=== PATIENT | female | born 1970 | race Caucasian/White ===

== ENCOUNTER 2025-06-15 13:30 | Observation (INO) | payer BC ==
--- NOTE | 2025-06-15 14:05 | ED ---
Chest Pain HPI - General Chief Complaint: Chest Pain Stated Complaint: Chest pain Time Seen by Provider: 06/15/25 13:37 Source: patient Mode of arrival: ambulatory Limitations: no limitations - History of Present Illness Initial Comments: 54-year-old female who presents to the emergency department reporting chest pain. States it started around 2 AM. She could feel her heart racing. States that intermittently over the past year she has had episodes of heart racing with high heart rate but never got it checked out. She denies history of any cardiac disease. No history of A-fib. She denies a ripping or tearing sensation to her back. No numbness, tingling or weakness in her extremities. Does admit to shortness of breath. Recently drove here 3 weeks ago from [place]. Denies any calf pain or swelling. No history of DVT or PE. She does have a history of von Willebrand's disease. No other alleviating, precipitating or modifying factors - Related Data Home Medications Medication Instructions Recorded Confirmed Semaglutide [Wegovy] 2.4 mg SQ MO 06/15/25 06/19/25 hydrOXYzine pamoate [Vistaril] 50 mg PO QID 06/15/25 06/19/25 Previous Rx's Medication Instructions Recorded ALPRAZolam [Xanax] 0.25 mg PO TID PRN #12 tab 06/17/25 Apixaban [Eliquis] 5 mg PO BID #60 tab 06/17/25 Melatonin 6 mg PO HS tab 06/19/25 Metoprolol Succinate (ER) [Toprol 50 mg PO DAILY tab 06/19/25 XL] dilTIAZem HCL [Cardizem] 120 mg PO DAILY #30 tab 06/19/25 Allergies Allergy/AdvReac Type Severity Reaction Status Date / Time Opioids - Morphine Analogues Allergy Anaphylaxis Verified 06/19/25 18:31 shellfish derived Allergy Anaphylaxis Verified 06/19/25 18:31 Review of Systems ROS Statement: Those systems with pertinent positive or pertinent negative responses have been documented in the HPI. ROS Other: All systems not noted in ROS Statement are negative. Past Medical History Past Medical History: CVA/TIA, Diabetes Mellitus History of Any Multi-Drug Resistant Organisms: None Reported Past Surgical History: Unable to Obtain Past Psychological History: No Psychological Hx Reported Smoking Status: Current every day smoker Past Alcohol Use History: Rare Past Drug Use History: None Reported General Exam Limitations: no limitations General appearance: alert, in no apparent distress Head exam: Present: atraumatic, normocephalic, normal inspection Eye exam: Present: normal appearance, PERRL, EOMI. Absent: scleral icterus, conjunctival injection, periorbital swelling ENT exam: Present: normal exam, mucous membranes moist Neck exam: Present: normal inspection. Absent: tenderness, meningismus, lymphadenopathy Respiratory exam: Present: normal lung sounds bilaterally. Absent: respiratory distress, wheezes, rales, rhonchi, stridor Cardiovascular Exam: Present: tachycardia, irregular rhythm, normal heart sounds. Absent: systolic murmur, diastolic murmur, rubs, gallop, clicks GI/Abdominal exam: Present: soft, normal bowel sounds. Absent: distended, tenderness, guarding, rebound, rigid Extremities exam: Present: normal inspection, full ROM, normal capillary refill. Absent: tenderness, pedal edema, joint swelling, calf tenderness Back exam: Present: normal inspection Neurological exam: Present: alert, oriented X3, CN II-XII intact Psychiatric exam: Present: normal affect, normal mood Skin exam: Present: warm, dry, intact, normal color. Absent: rash Course Vital Signs 06/15/25 06/15/25 06/15/25 13:31 15:46 15:58 Temperature 97.6 F Pulse Rate 71 178 H 141 H Respiratory 20 20 20 Rate Blood Pressure 120/105 119/97 O2 Sat by Pulse 99 98 97 Oximetry 06/15/25 18:02 Temperature 98.4 F Pulse Rate 85 Respiratory 18 Rate Blood Pressure 111/90 O2 Sat by Pulse 100 Oximetry Chest Pain MDM - MDM Was pt. sent in by a medical professional or institution (, PA, SCHOOL PSYCHOMETRIST, urgent care, hospital, or prison...) When possible be specific @ -No Did you speak to anyone other than the patient for history (EMS, parent, family, police, friend...)? What history was obtained from this source @ -No Did you review nursing and triage notes (agree or disagree)? Why? @ -I reviewed and agree with nursing and triage notes Were old charts reviewed (outside hosp., previous admission, EMS record, old EKG, old radiological studies, urgent care reports/EKG's, prison records)? Report findings @ -No old charts were reviewed Differential Diagnosis (chest pain, altered mental status, abdominal pain women, abdominal pain men, vaginal bleeding, weakness, fever, dyspnea, syncope, headache, dizziness, GI bleed, back pain, seizure, CVA, palpatations, mental health, musculoskeletal)? @ -Differential Palpitations Ventricular arrhythmias, atrial arrhythmias, myocardial infarction, anemia, thyrotoxicosis, electrolyte imbalance, hypokalemia, pulmonary embolism, pulmonary disease, drugs, alcohol, anxiety, stress.... This is not meant to be an all-inclusive list. EKG interpreted by me (3pts min.). @ -Yes which demonstrates A-fib with a rate of 157. QRS 82. QTc of 364. No acute ST segment elevations or depressions X-rays interpreted by me (1pt min.). @ -Yes which demonstrates no acute process CT interpreted by me (1pt min.). @ -None done U/S interpreted by me (1pt. min.). @ -None done What testing was considered but not performed or refused? (CT, X-rays, U/S, labs)? Why? @ -None What meds were considered but not given or refused? Why? @ -None Did you discuss the management of the patient with other professionals ( professionals i.e. , PA, SCHOOL PSYCHOMETRIST, lab, RT, psych nurse, director of social work, corporate lawyer, teacher, customs officer, wrapper caser)? Give summary @ -Spoke with Dr. Gunderson for admission Was smoking cessation discussed for >3mins.? @ -No Was critical care preformed (if so, how long)? @ -35 minutes for management of Cardizem drip Were there social determinants of health that impacted care today? How? (Homelessness, low income, unemployed, alcoholism, drug addiction, transportation, low edu. Level, literacy, decrease access to med. care, [facility], rehab)? @ -No Was there de-escalation of care discussed even if they declined (Discuss DNR or withdrawal of care, Hospice)? DNR status @ -No What co-morbidities impacted this encounter? (DM, HTN, Smoking, COPD, CAD, Cancer, CVA, ARF, Chemo, Hep., AIDS, mental health diagnosis, sleep apnea, morbid obesity)? @ -None Was patient admitted / discharged? Hospital course, mention meds given and route, prescriptions, significant lab abnormalities, going to OR and other pertinent info. @ -Upon arrival patient seen and evaluated. Patient is placed on continuous pulse ox and cardiac monitoring. IV is established. Laboratory studies are conducted. Patient is started on Cardizem drip. Will be admitted for new onset A-fib. Spoke with Dr. Gunderson for admission Undiagnosed new problem with uncertain prognosis? @ -No Drug Therapy requiring intensive monitoring for toxicity (Heparin, Nitro, Insulin, Cardizem)? @ -Cardizem Were any procedures done? @ -No Diagnosis/symptom? @ -Acute palpitations, new onset A-fib with RVR Acute, or Chronic, or Acute on Chronic? @ -Acute Uncomplicated (without systemic symptoms) or Complicated (systemic symptoms)? @ -Complicated Side effects of treatment? @ -No Exacerbation, Progression, or Severe Exacerbation? @ -No Poses a threat to life or bodily function? How? (Chest pain, [place], DC, pneumonia, PE, COPD, DKA, ARF, appy, cholecystitis, CVA, Diverticulitis, Homicidal, Suicidal, threat to staff... and all critical care pts) @ -Yes this patient does have rapid heart rate Disposition Clinical Impression: Atrial fibrillation with RVR, Chest pain Disposition: ADMITTED IP TO THIS HOSP Condition: Fair Is patient prescribed a controlled substance at d/c from ED?: No Time of Disposition: 16:34 Decision to Admit Reason: Admit from EC Decision Date: 06/15/25 Decision Time: 16:34
[2025-06-15 14:13] LABS: Basophils # (A) 0.05 10*3/uL (0.00-0.10); Basophils % (A) 0.3 %; Eosinophils # (A) 0.09 10*3/uL (0.04-0.35); Eosinophils % (A) 0.6 %; HCT 43.5 % (37.2-46.3); HGB 15.0 g/dL (12.0-15.0); Lymphocytes # (A) 3.25 10*3/uL (0.90-5.00); Lymphocytes % (A) 20.4 %; MCH 32.1 pg (27.0-32.0); MCHC 34.5 g/dL (32.0-37.0); MCV 93.1 fL (80.0-97.0); Monocytes # (A) 1.55 10*3/uL (0.20-1.00); Monocytes % (A) 9.7 %; Neutrophils # (A) 10.92 10*3/uL (1.80-7.70); Neutrophils % (A) 68.7 %; Platelet Count 468 10*3/uL (140-440); RBC 4.67 10*6/uL (4.10-5.20); RDW 14.1 % (11.5-14.5); WBC 15.91 10*3/uL (4.50-10.00)
--- NOTE | 2025-06-15 14:25 | XR ---
EXAMINATION TYPE: XR chest 2V DATE OF EXAM: 06/15/2025 2:17 PM COMPARISON: None. CLINICAL INDICATION: Female, 54 years old with history of Chest Pain; [facility] TECHNIQUE: XR chest 2V Frontal and lateral views of the chest. FINDINGS: Lungs/Pleura: There is no evidence of pleural effusion, focal consolidation, or pneumothorax. Pulmonary vascularity: Unremarkable. Heart/mediastinum: Cardiomediastinal silhouette is unremarkable. Musculoskeletal: No acute osseous pathology. Other findings: None IMPRESSION: No acute cardiopulmonary disease/process. [facility], , 06/15/2025 2:23 PM
[2025-06-15 14:29] LABS: ALT 10 U/L (4-34); AST 22 U/L (14-36); African American GFR (CKD) >90 (>60 ml/min/1.73 sqM); Albumin 4.5 g/dL (3.5-5.0); Alkaline Phosphatase 94 U/L (38-126); Anion Gap 14 mmol/L; Blood Urea Nitrogen 9 mg/dL (7-17); Calcium 9.5 mg/dL (8.4-10.2); Carbon Dioxide 21 mmol/L (22-30); Chloride 103 mmol/L (98-107); Glucose 111 mg/dL (74-99); Lipase 48 U/L (23-300); Magnesium 2.1 mg/dL (1.6-2.3); Non-African American GFR(CKD) >90 (>60 ml/min/1.73 sqM); Potassium 4.6 mmol/L (3.5-5.1); Sodium 138 mmol/L (137-145); Total Protein 6.7 g/dL (6.3-8.2)
[2025-06-15 14:36] LABS: INR 1.0 (<1.2); Partial Thromboplastin Time 23.7 sec (22.0-30.0); Prothrombin Time 10.7 sec (10.0-12.5)
[2025-06-15 14:37] LABS: NT-Pro-B-Type Natriuretic Pept 339 pg/mL
[2025-06-15] MEDS: HYDROmorphone 1 MG/ML 1 ML SYRINGE IVP STA (15:45)
[2025-06-15] MEDS: DILTIAZEM 5 MG/ML 5 ML VIAL IVP STA (15:47)
[2025-06-15] MEDS: DILTIAZEM 125 MG in DEXTROSE 5% IN WATER 100 ML IV SCH (15:49)
[2025-06-15] MEDS ORDERED: NALOXONE 0.4 MG/ML 1 ML VIAL IV PRN (16:34)
[2025-06-15 19:56] LABS: Glucose,Whole Blood 109 mg/dL (70-110)
[2025-06-15] MEDS: HYDROmorphone 1 MG/ML 1 ML SYRINGE IVP PRN (20:47)
[2025-06-16] MEDS: hydrOXYzine HCL 25 MG TAB PO SCH (01:13)
--- NOTE | 2025-06-16 01:47 | HP ---
HISTORY AND PHYSICAL CHIEF COMPLAINT: Chest pain. HISTORY OF PRESENT ILLNESS: This is a 54-year-old woman with a past medical history of diabetes and CVAs, who is complaining of severe chest pain, which she has felt in anterior part of chest, excruciating, which is radiated to the back. The patient was found in atrial ablation with fast ventricular rate. Patient started on Cardizem and the patient was closely monitored at this time. The patient apparently drove from [place] to take care of her brother also recently. No fever. No cough. PAST MEDICAL HISTORY: Reviewed include CVA, TIA, history of diabetes mellitus type 2. Rest of the chart is also reviewed. HOME MEDICATIONS: Reviewed include Catapres. Dose and rest of medications reviewed. ALLERGIES: None. FAMILY HISTORY: No history of heart disease or strokes in the family. SOCIAL HISTORY: Smoking. REVIEW OF SYSTEMS: Fourteen-point review is negative except as mentioned earlier. PHYSICAL EXAMINATION: VITAL SIGNS: Pulse ntd respirations 20. HEENT: Conjunctivae normal. NECK: No jugular venous distention. CARDIOVASCULAR: S1, S2 muffled. RESPIRATION: Breath sounds diminished at the bases. ABDOMEN: Soft. LEGS: No edema. No swelling. NERVOUS SYSTEM: No focal deficit. LABORATORY DATA: WBC 15.9. Other labs are noted. ASSESSMENT: 1. Chest pain, possible unstable angina, rule out acute myocardial infarction. 2. Atrial fibrillation with fast ventricular rate. 3. History of von Willebrand disease. 4. Diabetes mellitus, type 2. 5. Cerebrovascular accident, transient ischemic attack. 6. History of nicotine dependence. RECOMMENDATION: This 54-year-old woman presented with multiple complex medical issues. We will monitor the patient closely. Continue the current medications, symptomatic treatment. Otherwise, Cardizem drip and Hematology, Oncology, Cardiology consultations. Resume the home medications. Guarded prognosis because of multiple complex medical conditions. Further recommendations to follow. MMODL / IJN: [id number] / MTDD
[2025-06-16 07:17] LABS: Basophils # (A) 0.05 10*3/uL (0.00-0.10); Basophils % (A) 0.5 %; Eosinophils # (A) 0.11 10*3/uL (0.04-0.35); Eosinophils % (A) 1.1 %; HCT 39.1 % (37.2-46.3); HGB 12.8 g/dL (12.0-15.0); Lymphocytes # (A) 4.19 10*3/uL (0.90-5.00); Lymphocytes % (A) 42.8 %; MCH 31.1 pg (27.0-32.0); MCHC 32.7 g/dL (32.0-37.0); MCV 94.9 fL (80.0-97.0); Monocytes # (A) 0.96 10*3/uL (0.20-1.00); Monocytes % (A) 9.8 %; Neutrophils # (A) 4.44 10*3/uL (1.80-7.70); Neutrophils % (A) 45.5 %; Platelet Count 392 10*3/uL (140-440); RBC 4.12 10*6/uL (4.10-5.20); RDW 14.1 % (11.5-14.5); WBC 9.78 10*3/uL (4.50-10.00)
[2025-06-16 07:44] LABS: African American GFR (CKD) >90 (>60 ml/min/1.73 sqM); Anion Gap 5 mmol/L; Blood Urea Nitrogen 8 mg/dL (7-17); Calcium 8.8 mg/dL (8.4-10.2); Carbon Dioxide 27 mmol/L (22-30); Chloride 105 mmol/L (98-107); Glucose 80 mg/dL (74-99); Non-African American GFR(CKD) >90 (>60 ml/min/1.73 sqM); Potassium 4.2 mmol/L (3.5-5.1); Sodium 137 mmol/L (137-145)
--- NOTE | 2025-06-16 11:02 | P.CRDCN ---
History of Present Illness Consult date: 06/16/25 History of present illness: HISTORY OF PRESENTING ILLNESS: 54-year-old female presented to the hospital because of symptoms of palpitations, substernal chest heaviness like symptoms. She recently moved from [place] to help her parents out here. She is a smoker uses marijuana denies any excessive caffeine use or alcohol use. On admission she was noticed to be in atrial fibrillation which appears to be the new diagnosis for her. She was started on Cardizem drip and thereafter she converted to normal sinus rhythm. Cardiology was consulted for atrial fibrillation treatment management ............................................................................. ................................................................. Pertient Vitals: 98/59, heart rate 74 Pertient Labs: Hb 15 D-dimer 0.2, BUN and creatinine are WNL, troponins were not elevated NT-proBNP 339 EKG: Atrial fibrillation with RVR, follow-up EKG normal sinus rhythm Pertient Imaging: Chest x-ray does not show signs of consolidation or congestion .......................................... ................................................................................ .................... Prior cardiac testing: [ ] ....................................................................... ....................................................................... REVIEW OF SYSTEMS: 14 point review of system is negative except what is mentioned above in HPI. ................................ ................................................................................ .............................. PHYSICAL EXAMINATION: Neck: Brisk carotid upstroke, no jugular venous distention. Lungs: Clear to auscultation. Heart: Regular rate and rhythm, S1-S2, , no murmur or rub. Abdomen: Soft nontender, positive bowel sounds. Extremities: No edema, intact distal pulses. Neuro: Alert, oritented, no focal deficits. Detailed neuro exam was not performed. ......................................... ................................................................................ ..................... ASSESSMENT: # New onset atrial fibrillation. First diagnosed 05/2025. Currently in sinus rhythm # Essential hypertension # Type 2 diabetes # Prior history of CVA/TIA, in her mid 40s # Prior history of bariatric surgery # Von Willebrand's disease # Asthma # Tobacco smoker and nicotine vape user # Marijuana smoker PLAN: Start Eliquis 5 twice daily because of elevated [id number] Start Coreg 3.125 mg twice daily She has been using clonidine 0.1 mg 3 to 4 tablets at night for sleeping which is too much. Will ask her to reduce it to 0.1 mg only 1 tablet at night and see her mental health specialist for further assistance with this Obtain echocardiogram Obtain a 14-day Holter monitor to be picked up from the office lipids A1c HbA1c ESR and CRP levels Complete tobacco nicotine marijuana smoking cessation Fernando Calderón MD, FAC, RPVI Past Medical History Past Medical History: CVA/TIA, Diabetes Mellitus History of Any Multi-Drug Resistant Organisms: None Reported Past Surgical History: Breast Surgery, Cholecystectomy, Orthopedic Surgery Additional Past Surgical History / Comment(s): bilateral ankle surgery, cosmetic surgies Past Psychological History: No Psychological Hx Reported Smoking Status: Current every day smoker Past Alcohol Use History: Rare Past Drug Use History: None Reported Medications and Allergies Home Medications Medication Instructions Recorded Confirmed Type Semaglutide [Wegovy] 2.4 mg SQ MO 06/15/25 06/15/25 History cloNIDine HCL [Catapres] 0.1 mg PO QID 06/15/25 06/15/25 History hydrOXYzine pamoate [Vistaril] 50 mg PO QID 06/15/25 06/15/25 History Allergies Allergy/AdvReac Type Severity Reaction Status Date / Time No Known Allergies Allergy Verified 06/15/25 15:52 Physical Exam Vitals: Vital Signs Temp Pulse Pulse Resp BP BP Pulse Ox 06/16/25 08:38 98.1 F 74 16 98/59 99 06/16/25 04:58 97.5 F L 86 16 87/64 100 06/16/25 02:00 86 06/16/25 01:50 115/75 06/16/25 00:55 97.9 F 78 18 92/67 98 06/15/25 20:10 97.9 F 128 H 16 109/68 98 06/15/25 18:24 97.9 F 132 H 16 115/89 99 06/15/25 18:02 98.4 F 85 18 111/90 100 06/15/25 15:58 141 H 20 119/97 97 06/15/25 15:46 178 H 20 120/105 98 06/15/25 13:31 97.6 F 71 20 99 Intake and Output 06/15/25 06/16/25 06/16/25 22:59 06:59 14:59 Intake Total 213.417 Balance 213.417 Intake: IV 10 Invasive Line 2 10 Intake, IV Titration 85.417 Amount Diltiazem 125 mg In 85.417 Dextrose 5% in Water 100 ml @ 5 MG/HR 5 mls/hr IV .Q24H [facility] Rx#:[id number] Oral 118 Other: Voiding Method Toilet Toilet Toilet # Voids 1 Weight 74.843 kg 77.7 kg Results 06/16/25 06:49 06/16/25 06:49 Cardiac Enzymes 06/15/25 06/15/25 06/15/25 Range/Units 14:07 14:07 17:26 AST 22 (14-36) U/L Troponin I <0.012 <0.012 (0.000-0.034) ng/mL 06/15/25 Range/Units 20:33 AST (14-36) U/L Troponin I <0.012 (0.000-0.034) ng/mL Coagulation 06/15/25 Range/Units 14:07 PT 10.7 (10.0-12.5) sec APTT 23.7 (22.0-30.0) sec CBC 06/15/25 06/16/25 Range/Units 14:07 06:49 WBC 15.91 H 9.78 (4.50-10.00) 10*3/uL RBC 4.67 4.12 (4.10-5.20) 10*6/uL Hgb 15.0 12.8 (12.0-15.0) g/dL Hct 43.5 39.1 (37.2-46.3) % Plt Count 468 H 392 (140-440) 10*3/uL Comprehensive Metabolic Panel 06/15/25 06/16/25 Range/Units 14:07 06:49 Sodium 138 137 (137-145) mmol/L Potassium 4.6 4.2 (3.5-5.1) mmol/L Chloride 103 105 (98-107) mmol/L Carbon Dioxide 21 L 27 (22-30) mmol/L BUN 9 8 (7-17) mg/dL Creatinine 0.45 L 0.45 L (0.52-1.04) mg/dL Glucose 111 H 80 (74-99) mg/dL Calcium 9.5 8.8 (8.4-10.2) mg/dL AST 22 (14-36) U/L ALT 10 (4-34) U/L Alkaline Phosphatase 94 (38-126) U/L Total Protein 6.7 (6.3-8.2) g/dL Albumin 4.5 (3.5-5.0) g/dL Current Medications Generic Name Dose Route Start Last Admin Trade Name Freq PRN Reason Stop Dose Admin Apixaban 5 mg 06/16/25 11:00 Apixaban 5 Mg Tab PO BID [facility] Protocol Carvedilol 3.125 mg 06/16/25 11:00 Carvedilol 3.125 Mg Tab PO BID-W/MEALS [facility] Clonidine 0.1 mg 06/16/25 21:00 Clonidine Hcl 0.1 Mg Tab PO HS [facility] Hydromorphone HCl 1 mg 06/15/25 16:34 06/16/25 08:42 Hydromorphone 1 Mg/Ml 1 Ml Syringe IVP 1 mg Q3HR PRN Administration Severe Pain (Scale 7 to 10) Hydroxyzine HCl 50 mg 06/15/25 18:00 06/16/25 08:40 Hydroxyzine Hcl 25 Mg Tab PO 50 mg QID YVETTE Administration Naloxone HCl 0.2 mg 06/15/25 16:34 Naloxone 0.4 Mg/Ml 1 Ml Vial IV Q2M PRN Opioid Reversal Intake and Output 06/15/25 06/16/25 06/16/25 22:59 06:59 14:59 Intake Total 213.417 Balance 213.417 Intake: IV 10 Invasive Line 2 10 Intake, IV Titration 85.417 Amount Diltiazem 125 mg In 85.417 Dextrose 5% in Water 100 ml @ 5 MG/HR 5 mls/hr IV .Q24H [facility] Rx#:[id number] Oral 118 Other: Voiding Method Toilet Toilet Toilet # Voids 1 Weight 74.843 kg 77.7 kg 06/16/25 06:49 06/16/25 06:49
[2025-06-16] MEDS: APIXABAN 5 MG TAB PO SCH (11:59)
[2025-06-16 12:01] LABS: Glucose,Whole Blood 103 mg/dL (70-110)
[2025-06-16 12:10] LABS: Magnesium 2.0 mg/dL (1.6-2.3)
--- NOTE | 2025-06-16 12:58 | P.CONS ---
History of Present Illness - Reason for Consult Consult date: 06/16/25 von willibrand disease Requesting physician: Luz Maria Gunderson - Chief Complaint Chest pain - History of Present Illness Ms. Rebolledo is a very pleasant 54 yo female with history of von willibrand disease. she is here for chest pain. work up with normal CBC and CMP. PT and PTT normal. Ddimer normal. HR was 170's, due to atrial fibrillation with RVR. She was treated with cardizem drip and converted back to sinus rhythm. She has a history of vonWillibrand Disease diagnosed at [facility] as a child when her mother was diagnosed with this. She has siblings with this diagnosis as well. Was living in [place] and moved back recently. States she has not needed to see anyone for this in a long time. she had menorrhagia requiring ablation in the past, but not hysterectomy. she is postmenopausal now. Also required factor and and pRBC and plasma after she had significant blood loss from accident and multiple subsequent surgeries. Outside of this, she would require DDAVP for procedures to avoid bleeding complications. Denies any NSAIDs or alcohol use. Started on eliquis for her a. fib. Past Medical History Past Medical History: CVA/TIA, Diabetes Mellitus History of Any Multi-Drug Resistant Organisms: None Reported Past Surgical History: Breast Surgery, Cholecystectomy, Orthopedic Surgery Additional Past Surgical History / Comment(s): bilateral ankle surgery, cosmetic surgies Past Psychological History: No Psychological Hx Reported Smoking Status: Current every day smoker Past Alcohol Use History: Rare Past Drug Use History: None Reported Medications and Allergies Home Medications Medication Instructions Recorded Confirmed Type Semaglutide [Wegovy] 2.4 mg SQ MO 06/15/25 06/15/25 History cloNIDine HCL [Catapres] 0.1 mg PO QID 06/15/25 06/15/25 History hydrOXYzine pamoate [Vistaril] 50 mg PO QID 06/15/25 06/15/25 History Allergies Allergy/AdvReac Type Severity Reaction Status Date / Time No Known Allergies Allergy Verified 06/15/25 15:52 Physical Exam Vitals: Vital Signs Temp Pulse Pulse Resp BP BP Pulse Ox 06/15/25 20:10 97.9 F 128 H 16 109/68 98 06/15/25 18:24 97.9 F 132 H 16 115/89 99 06/15/25 18:02 98.4 F 85 18 111/90 100 06/15/25 15:58 141 H 20 119/97 97 06/15/25 15:46 178 H 20 120/105 98 06/15/25 13:31 97.6 F 71 20 99 Intake and Output 06/15/25 06/15/25 06/15/25 06:59 14:59 22:59 Other: Voiding Method Toilet Weight 74.843 kg 74.843 kg Sitting in bed, comfortable, no overt bruising. no acute distress. alert and oriented x 3. no respiratory distress. no jaundice. Results CBC & Chem 7: 06/16/25 06:49 06/16/25 06:49 Labs: Abnormal Lab Results - Last 24 Hours (Table) 06/15/25 06/15/25 Range/Units 14:07 14:07 WBC 15.91 H (4.50-10.00) 10*3/uL MCH 32.1 H (27.0-32.0) pg Plt Count 468 H (140-440) 10*3/uL MPV 8.8 L (9.5-12.2) fL Immature Gran # 0.05 H (0.00-0.04) 10*3/uL Neutrophils # 10.92 H (1.80-7.70) 10*3/uL Monocytes # 1.55 H (0.20-1.00) 10*3/uL Carbon Dioxide 21 L (22-30) mmol/L Creatinine 0.45 L (0.52-1.04) mg/dL Glucose 111 H (74-99) mg/dL Assessment and Plan Assessment: 1. atrial fibrillation with RVR 2. von willibrand disease Plan: Ms. Rebolledo is a very pleasant 54 yo female with history of vWD diagnosed as a child at [facility] when her mother was diagnosed with this, and has been doing well and not needing to follow up with anyone for this. recently moved back to [place] from [place] and here for CP due to atrial fibrillation with RVR. - No objections to eliquis however will need to monitor closely for bleeding/bruising - avoid aspirin if possible due to vWD discussed with pt and family at bedside in detail and they are agreeable to the plan. all questions were answered.
[2025-06-16] MEDS: ALPRAZolam 0.25 MG TAB PO PRN (15:25)
--- NOTE | 2025-06-16 16:50 | PN ---
PROGRESS NOTE DATE OF SERVICE: 06/16/2025 SUBJECTIVE: This is a 54-year-old woman who was admitted with chest pain, also had atrial fibrillation. No fever. No cough. OBJECTIVE: VITAL SIGNS: Pulse 54, blood pressure 90/60, and respirations 14. CHEST: Clear to auscultation. CARDIOVASCULAR: S1, S2. ABDOMEN: Soft. LABORATORY DATA: Noted. A 2D echo report awaited. ASSESSMENT: 1. Chest pain, possible unstable angina, rule out acute myocardial infarction. 2. Atrial fibrillation with fast ventricular rate. 3. History of von Willebrand disease. 4. Diabetes mellitus, type 2. 5. History of cerebrovascular accident and transient ischemic attack. 6. History of nicotine dependence. RECOMMENDATIONS: Recommend to continue current management and continue symptomatic treatment. Otherwise I recommend follow with Cardiology, Hematology, and Oncology. Repeat labs in the morning. Guarded prognosis. Further recommendations to follow. MMODL / IJN: [id number] /
[2025-06-17 08:03] LABS: Basophils # (A) 0.05 10*3/uL (0.00-0.10); Basophils % (A) 0.5 %; Eosinophils # (A) 0.18 10*3/uL (0.04-0.35); Eosinophils % (A) 1.9 %; HCT 40.1 % (37.2-46.3); HGB 13.1 g/dL (12.0-15.0); Lymphocytes # (A) 3.50 10*3/uL (0.90-5.00); Lymphocytes % (A) 36.2 %; MCH 31.0 pg (27.0-32.0); MCHC 32.7 g/dL (32.0-37.0); MCV 94.8 fL (80.0-97.0); Monocytes # (A) 0.76 10*3/uL (0.20-1.00); Monocytes % (A) 7.9 %; Neutrophils # (A) 5.15 10*3/uL (1.80-7.70); Neutrophils % (A) 53.2 %; Platelet Count 419 10*3/uL (140-440); RBC 4.23 10*6/uL (4.10-5.20); RDW 13.8 % (11.5-14.5); WBC 9.67 10*3/uL (4.50-10.00)
[2025-06-17 08:49] LABS: African American GFR (CKD) >90 (>60 ml/min/1.73 sqM); Anion Gap 7 mmol/L; Blood Urea Nitrogen 8 mg/dL (7-17); Calcium 9.4 mg/dL (8.4-10.2); Carbon Dioxide 27 mmol/L (22-30); Chloride 103 mmol/L (98-107); Glucose 76 mg/dL (74-99); Non-African American GFR(CKD) >90 (>60 ml/min/1.73 sqM); Potassium 4.8 mmol/L (3.5-5.1); Sodium 137 mmol/L (137-145)
--- NOTE | 2025-06-17 11:25 | CA ---
Transthoracic Echo Report Name: Helene Rebolledo Age: 54 Gender: F : 1970 Exam Date: 06/17/2025 08:27 Exam Location: [place] [facility] Ht (in): 66 Wt (lb): 171 Ordering Physician: Fernando Calderón MD ([id number]) Attending/Referring Phys: Industrial Safety Engineer Sheron Crowell RDCS Procedure CPT: Indications: atrial fibrillation Cardiac Hx: Technical Quality: Technically difficult study Contrast 1: Total Dose (mL): Contrast 2: Total Dose (mL): MEASUREMENTS (Male / Female) Normal Values 2D ECHO LV Diastolic Diameter PLAX 4.2 cm 4.2 - 5.9 / 3.9 - 5.3 cm LV Systolic Diameter PLAX 2.8 cm IVS Diastolic Thickness 0.9 cm 0.6 - 1.0 / 0.6 - 0.9 cm LVPW Diastolic Thickness 1.1 cm 0.6 - 1.0 / 0.6 - 0.9 cm LV Relative Wall Thickness 0.5 RV Internal Dim ED PLAX 2.4 cm LVOT Diameter 1.8 cm LA Systolic Diameter LX 3.3 cm 3.0 - 4.0 / 2.7 - 3.8 cm LV Diastolic Volume MOD 4C 63.5 cm??? LV Systolic Volume MOD 4C 33.4 cm??? LV Ejection Fraction MOD 4C 47.5 % LV Cardiac Index MOD 4C 974.4 cm???/min???m??? LV Diastolic Length 4C 7.1 cm LV Systolic Length 4C 6.5 cm M-MODE Aortic Root Diameter MM 3.3 cm AV Cusp Separation MM 2.0 cm DOPPLER AV Peak Velocity 104.5 cm/s AV Peak Gradient 4.4 mmHg LVOT Peak Velocity 89.6 cm/s LVOT Peak Gradient 3.2 mmHg AV Area Cont Eq pk 2.2 cm??? MV Area PHT 3.7 cm??? Mitral E Point Velocity 61.5 cm/s Mitral A Point Velocity 54.0 cm/s Mitral E to A Ratio 1.1 MV Deceleration Time 205.1 ms TR Peak Velocity 185.3 cm/s TR Peak Gradient 13.7 mmHg Right Atrial Pressure 5.0 mmHg Pulmonary Artery Systolic Pressu 18.7 mmHg Right Ventricular Systolic Press 18.7 mmHg PV Peak Velocity 89.7 cm/s PV Peak Gradient 3.2 mmHg FINDINGS Left Ventricle Left ventricular ejection fraction is estimated at 50-55 %. Left ventricular systolic function borderline normalleft ventricular cavity size normal. Right Ventricle Normal right ventricular size and function. Right ventricular systolic pressure within normal limits. Right Atrium Normal right atrial size. No right atrial thrombus or mass seen. Left Atrium Normal left atrial size. No left atrial thrombus or mass present. Mitral Valve Mitral valve thickened. No mitral stenosis. No mitral regurgitation. Aortic Valve Trileaflet aortic valve. Thickened aortic valve without stenosis. No aortic regurgitation. Tricuspid Valve Tricuspid valve not well visualized. Trace to mild tricuspid regurgitation. Pulmonic Valve Pulmonic valve not well visualized. No pulmonic regurgitation. Pericardium No pericardial effusion. No pleural effusion. Aorta Normal size aortic root and proximal ascending aorta. CONCLUSIONS Left ventricular systolic function borderline normal Trace to mild tricuspid regurgitation Previewed by: Dr. Freddie Coreas MD (Electronically Signed) Final Date: 17 June 2025 11:24
[2025-06-17 11:45] VITALS: BP 136/88; PULSE 64; RESP 18; TEMP 97.5
--- NOTE | 2025-06-17 12:23 | P.PN ---
Subjective Progress Note Date: 06/17/25 We can add 6 Adderall XR solvesHISTORY OF PRESENTING ILLNESS: 54-year-old female presented to the hospital because of symptoms of palpitations, substernal chest heaviness like symptoms. She recently moved from [place] to help her parents out here. She is a smoker uses marijuana denies any excessive caffeine use or alcohol use. On admission she was noticed to be in atrial fibrillation which appears to be the new diagnosis for her. She was started on Cardizem drip and thereafter she converted to normal sinus rhythm. Cardiology was consulted for atrial fibrillation treatment management ........ ................................................................................ ...................................................... Pertient Vitals: 98/59, heart rate 74 Pertient Labs: Hb 15 D-dimer 0.2, BUN and creatinine are WNL, troponins were not elevated NT-proBNP 339 EKG: Atrial fibrillation with RVR, follow-up EKG normal sinus rhythm Pertient Imaging: Chest x-ray does not show signs of consolidation or congestion ......................................................................... ..................................................................... 06/17/2025 Patient seen and examined. Patient is currently in a sinus rhythm. Echocardiogram reveals EF 50 to 55%, trace to mild tricuspid regurgitation. Patient is maintained on Eliquis and Coreg. Blood pressure 136/88, heart rate in the 60s, pulse ox 99% on room air. Repeat blood work is unremarkable. Patient is maintained on Coreg and Eliquis. She states she received Xanax last night which help with her sleeping. Clonidine has been reduced which she has been using to help with sleeping. A1c 5.0, sed rate 8, CRP 5.6, TSH 3.25 ................................................................................ .............................................................. PHYSICAL EXAMINATION: Neck: Brisk carotid upstroke, no jugular venous distention. Lungs: Clear to auscultation. Heart: Regular rate and rhythm, S1-S2, , no murmur or rub. Abdomen: Soft nontender, positive bowel sounds. Extremities: No edema, intact distal pulses. Neuro: Alert, oritented, no focal deficits. Detailed neuro exam was not performed. ................................................................................ .............................................................. ASSESSMENT: # New onset atrial fibrillation. First diagnosed 05/2025. Currently in sinus rhythm # Essential hypertension # Type 2 diabetes # Prior history of CVA/TIA, in her mid 40s # Prior history of bariatric surgery # Von Willebrand's disease # Asthma # Tobacco smoker and nicotine vape user # Marijuana smoker PLAN: Continue the addition of Eliquis 5 twice daily because of elevated [id number] Continue the addition of Coreg 3.125 mg twice daily Continue reduced clonidine 0.1 mg only 1 tablet at night and see her mental health specialist for further assistance with sleep Obtain a 14-day Holter monitor to be picked up from the office Complete tobacco nicotine marijuana smoking cessation. Patient will be given the [employer] quit line information at discharge. Patient is cleared for discharge from cardiology. She will follow-up in the office with Dr. Calderón in 3 weeks. Nurse practitioner note has been reviewed, I agree with documented findings and plan of care. Patient was seen and examined. Objective - Vital Signs Vital signs: Vital Signs Temp 97.9 F 06/17/25 04:00 Pulse 65 06/17/25 06:30 Resp 14 06/17/25 04:00 BP 129/89 06/17/25 06:30 Pulse Ox 97 06/17/25 04:00 FiO2 Intake & Output 06/16/25 06/17/25 06/17/25 18:59 06:59 18:59 Intake Total 675.417 Balance 675.417 Weight 77.4 kg Intake: IV 10 Invasive Line 2 10 Intake, IV Titration 85.417 Amount Diltiazem 125 mg In 85.417 Dextrose 5% in Water 100 ml @ 5 MG/HR 5 mls/hr IV .Q24H YVETTE Rx#:[id number] Oral 580 Other: Voiding Method Toilet Toilet # Voids 3 1 - Labs CBC & Chem 7: 06/17/25 06:54 06/17/25 06:54 Labs: Abnormal Lab Results - Last 24 Hours (Table) 06/16/25 06/17/25 Range/Units 06:49 06:54 MPV 9.1 L (9.5-12.2) fL C-Reactive Protein 5.6 H (<1.0) mg/dL
[2025-06-17] MEDS ORDERED: NON FORMULARY DRUG (Semaglutide [Wegovy] 2.4 MG/0.75 ML Each) SQ SCH (17:13)
--- NOTE | 2025-06-18 07:01 | P.DS ---
Providers Date of admission: 06/15/25 16:36 Expected date of discharge: 06/17/25 Attending physician: Luz Maria Gunderson Consults: 06/15/25 16:34 Consult Physician Urgent Consulting Provider: [facility] Consult Reason/Comments: new onset afib with rvr Do you want consulting provider notified?: Yes Consult Physician Urgent Consulting Provider: Simin Albert Consult Reason/Comments: Von Willebrand's disease, possible anticoagulation needed Do you want consulting provider notified?: Yes Primary care physician: Jared Cody Hospital Course: Final diagnosis Chest pain, possible unstable angina, ACS ruled out Atrial fibrillation with fast ventricular rate, new onset Hypertension History of asthma, not in exacerbation History of von Willebrand disease Diabetes mellitus, type II History of CVA/TIA Continued ongoing nicotine dependence/vaping THC use GI prophylaxis DVT prophylaxis Full code Discharge disposition Patient is being discharged in a stable condition with guarded prognosis to home. Patient will follow-up with Dr. Cody in the outpatient setting upon discharge. Patient is to continue with current patient and outpatient follow-up with cardiology as scheduled. Patient was to go to cardiology office for event monitor placement on discharge. Patient anxious to leave and left without receiving discharge instructions and paperwork. Total time taken is greater than 35 minutes. Hospital course This is a 54-year-old female who was recently admitted with chest pain also noted to have atrial fibrillation with RVR being closely monitored with cardiology following. ACS ruled out and patient is currently rate controlled and will continue on current medications and cardiology recommending an event monitor on discharge that she is to obtain at the cardiology office. Patient has been extremely anxious to leave all day and has been cleared by cardiology and per nursing staff has left the unit multiple times to her vehicle and reminded frequently she has to remain in the hospital while inpatient. Patient instructed to follow-up with primary care provider on discharge and she reports she has an appointment with Dr. Cody later this week. Please refer to consultation notes for further HPI. Currently no reports of chest pain, shortness of breath, or palpitations. Patient is afebrile. No reports of nausea or vomiting and patient is tolerating diet. Patient will be discharged home today. Guarded prognosis and high risk for readmissions given noncompliance. Physical exam: Gen: This is a 84-year-old female who is awake, alert and oriented x 3, well- developed, well-nourished HEENT: Head is atraumatic, normocephalic. Pupils equal, round. Sclerae is anicteric. NECK: Supple. No JVD. No lymphadenopathy. No thyromegaly. LUNGS: Diminished breath sounds bilaterally otherwise clear to auscultation. No wheezes or rhonchi. No intercostal retractions. HEART: S1, S2 are muffled, irregular, currently rate controlled ABDOMEN: Soft. Bowel sounds are present. No masses. No tenderness. EXTREMITIES: No pedal edema. No calf tenderness. NEUROLOGICAL: Patient is awake, alert and oriented x3. Cranial nerves 2 through 12 are grossly intact. Please refer to medication reconciliation sheet for a list of medications. The impression and plan of care has been dictated by Capri Kee, Nurse Practitioner as directed. Dr. Neptali MD I have performed a history and examination and MDM of this patient, discussed the same with the dictator, and agree with the dictator's assessment and plan as written ,documented as a scribe. Based on total visit time, I have performed more than 50% of the visit. Patient Condition at Discharge: Fair Plan - Discharge Summary Discharge Rx Participant: Yes New Discharge Prescriptions: New Apixaban [Eliquis] 5 mg PO BID #60 tab carvediloL [Coreg] 3.125 mg PO BID-W/MEALS #60 tab ALPRAZolam [Xanax] 0.25 mg PO TID PRN #12 tab PRN Reason: Anxiety Continue Semaglutide [Wegovy] 2.4 mg SQ MO hydrOXYzine pamoate [Vistaril] 50 mg PO QID Changed cloNIDine HCL [Catapres] 0.1 mg PO DAILY #0 Discharge Medication List Semaglutide [Wegovy] 2.4 mg SQ MO 06/15/25 [History] hydrOXYzine pamoate [Vistaril] 50 mg PO QID 06/15/25 [History] ALPRAZolam [Xanax] 0.25 mg PO TID PRN #12 tab 06/17/25 [Rx] Apixaban [Eliquis] 5 mg PO BID #60 tab 06/17/25 [Rx] carvediloL [Coreg] 3.125 mg PO BID-W/MEALS #60 tab 06/17/25 [Rx] cloNIDine HCL [Catapres] 0.1 mg PO DAILY #0 06/17/25 [Rx] Follow up Appointment(s)/Referral(s): Jared Cody MD [Primary Care Provider] - 1 Week (office did not answer please call and make appointment) Fernando Calderón MD [Medical Doctor] - 07/15/25 2:30 pm (after leaving please cotton picker operator heart monitor at cardiology office on [address]) Patient Instructions/Handouts: Apixaban (By mouth), A-fib (Atrial Fibrillation) (DC) Activity/Diet/Wound Care/Special Instructions: Patient to cotton picker operator event monitor at [facility] office immediately following discharge. Discharge Disposition: HOME SELF-CARE
== END 2025-06-17 15:49 | disposition home or self-care (01) ==
LOC: EC 13:30 → INTOOBSV 16:36 → 3SCARD 16:36 → UNDODISIN 06-17 15:49
PROVIDERS: ADMIT Hospitalist; ATTEND Hospitalist
PROC: 3E033RZ Introduction of Antiarrhythmic into Peripheral Vein, Percutaneous Approach (ICD-10-PCS; principal; 2025-06-15)
DX: I48.91 Unspecified atrial fibrillation (principal); D68.00 Von Willebrand disease, unspecified; E11.9 Type 2 diabetes mellitus without complications; I10 Essential (primary) hypertension; J45.909 Unspecified asthma, uncomplicated; I07.1 Rheumatic tricuspid insufficiency; F12.90 Cannabis use, unspecified, uncomplicated; F17.290 Nicotine dependence, other tobacco product, uncomplicated; Z79.01 Long term (current) use of anticoagulants; Z79.85 Long-term (current) use of injectable non-insulin antidiabetic drugs; Z79.899 Other long term (current) drug therapy; Z88.5 Allergy status to narcotic agent; Z91.013 Allergy to seafood; Z86.73 Personal history of transient ischemic attack (TIA), and cerebral infarction without residual deficits; Z98.84 Bariatric surgery status
CPT/HCPCS: 36415; 71046; 80048; 80053; 83036; 83690; 83735; 83880; 84443; 84484; 85025; 85379; 85610; 85652; 85730; 86140; 93005; 93306; 96365; 96366; 96375; 96376; 99285; 99291

== ENCOUNTER 2025-06-17 22:49 | Inpatient (IN) | payer BC ==
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
[2025-06-17] MEDS: SODIUM CHLORIDE 0.9% 1,000 ML IV STA (23:05)
[2025-06-17] MEDS: LORazepam 1 MG/0.5 ML VIAL IV STA (23:05)
[2025-06-17 23:06] LABS: Basophils # (A) 0.04 10*3/uL (0.00-0.10); Basophils % (A) 0.4 %; Eosinophils # (A) 0.14 10*3/uL (0.04-0.35); Eosinophils % (A) 1.2 %; HCT 39.8 % (37.2-46.3); HGB 13.5 g/dL (12.0-15.0); Lymphocytes # (A) 3.42 10*3/uL (0.90-5.00); Lymphocytes % (A) 30.2 %; MCH 31.7 pg (27.0-32.0); MCHC 33.9 g/dL (32.0-37.0); MCV 93.4 fL (80.0-97.0); Monocytes # (A) 0.68 10*3/uL (0.20-1.00); Monocytes % (A) 6.0 %; Neutrophils # (A) 7.01 10*3/uL (1.80-7.70); Neutrophils % (A) 61.8 %; Platelet Count 426 10*3/uL (140-440); RBC 4.26 10*6/uL (4.10-5.20); RDW 13.4 % (11.5-14.5); WBC 11.33 10*3/uL (4.50-10.00)
[2025-06-17 23:18] LABS: ALT 11 U/L (4-34); Acetaminophen <10.0 ug/mL; African American GFR (CKD) >90 (>60 ml/min/1.73 sqM); Albumin 4.2 g/dL (3.5-5.0); Anion Gap 19 mmol/L; Blood Urea Nitrogen 10 mg/dL (7-17); Calcium 8.9 mg/dL (8.4-10.2); Carbon Dioxide 15 mmol/L (22-30); Chloride 105 mmol/L (98-107); Glucose 137 mg/dL (74-99); Lipase 249 U/L (23-300); Non-African American GFR(CKD) >90 (>60 ml/min/1.73 sqM); Salicylate <1.0 mg/dL; Sodium 139 mmol/L (137-145); Total Protein 6.6 g/dL (6.3-8.2)
[2025-06-17 23:26] LABS: AST 27 U/L (14-36); Alkaline Phosphatase 88 U/L (38-126); Potassium 4.7 mmol/L (3.5-5.1)
[2025-06-17 23:39] LABS: INR 1.0 (<1.2); Prothrombin Time 10.9 sec (10.0-12.5)
[2025-06-18] MEDS ORDERED: NALOXONE 0.4 MG/ML 1 ML VIAL IV PRN (00:31)
[2025-06-18] MEDS: METOPROLOL TARTRATE 5 MG/5 ML VIAL IVP STA (00:51)
[2025-06-18] MEDS: MAGNESIUM SULFATE-D5W PMX 1 GM in DEXTROSE/WATER 1 100ML.BAG IVPB ONE (00:55)
[2025-06-18] MEDS: DILTIAZEM 5 MG/ML 5 ML VIAL IVP STA (00:58)
[2025-06-18] MEDS: DILTIAZEM 125 MG in DEXTROSE 5% IN WATER 100 ML IV SCH (00:59)
[2025-06-18] MEDS: SODIUM CHLORIDE 0.9% 1,000 ML IV SCH (01:00)
[2025-06-18 01:29] LABS: Amorphous Sediment,Urine Rare /hpf; Bacteria,Urine Rare /hpf; Bilirubin,Urine Negative (Negative); Blood,Urine Trace (Negative); Color,Urine Colorless; Glucose,Urine (UA) Negative (Negative); Ketones,Urine 1+ (Negative); Leukocyte Esterase,Urine Small (Negative); Mucus,Urine Rare /hpf; Nitrite,Urine Negative (Negative); PH, Urine 6.0 (5.0-8.0); Protein,Urine Negative (Negative); RBC,Urine 1 /hpf (0-5); Specific Gravity,Urine 1.013 (1.001-1.035); Squamous Epithelial Cell,Urine 1 /hpf (0-4); Urobilinogen,Urine <2.0 mg/dL (<2.0); WBC,Urine 6 /hpf (0-5)
[2025-06-18 01:52] LABS: Barbiturate Screen,Urine Not Detected (NotDetected); Benzodiazepines Screen,Urine Detected (NotDetected); Opiate Screen,Urine Not Detected (NotDetected); Oxycodone Screen, Urine Not Detected (NotDetected); Phencyclidine Screen,Urine Not Detected (NotDetected); Tricyclic Antidepressant,Urine Detected (NotDetected); Urn Cannabinoid Scrn Detected (NotDetected)
[2025-06-18] MEDS: ONDANSETRON 4 MG/2 ML VIAL IVP PRN (05:12)
[2025-06-18] MEDS: METOPROLOL TARTRATE 25 MG TAB PO SCH (08:06)
[2025-06-18] MEDS: APIXABAN 5 MG TAB PO SCH (08:06)
[2025-06-18 08:49] LABS: Magnesium 2.0 mg/dL (1.6-2.3)
--- NOTE | 2025-06-18 11:21 | P.CRDCN ---
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 Patient was recently hospitalized for new onset of atrial fibrillation and was discharged yesterday. Apparently patient left and had a disagreement with family and did not overdose with clonidine, hydroxyzine, and Seroquel. Patient is unresponsive to us at this time. She has noted to be in atrial fibrillation and initially heart rates were up to the 190s. Heart rate is currently 120s. She has been started on Cardizem drip which is currently at 10 mg/h. She is also status post Cardizem bolus 19 mg, magnesium replacement, IV fluid bolus of 1 L, IV Ativan x 1. Patient also received Xanax blood pressure 126/94, pulse ox 98% on room air. Telemetry is atrial fibrillation. -EKG: Atrial fibrillation at 197 bpm. -Laboratory studies: WBC 11.3, hemoglobin 13.5, creatinine 0.59, potassium 4.7, troponin negative x 2. TSH 1.46. Urine drug screen positive for tricyclic antidepressants, benzodiazepines and marijuana. Serum alcohol 92. -Home cardiac medications: Discharged yesterday on Eliquis 5 mg twice daily, Coreg 3.125 mg twice daily, Catapres reduced to 0.1 mg daily. -Echocardiogram performed on 06/16/2025 revealed EF 50 to 55%, trace to mild tricuspid regurgitation. Review Of Systems: At the time of my exam: CONSTITUTIONAL: Denies fever or chills. HEENT: Denies blurred vision, vision changes, or eye pain. Denies hemoptysis CARDIOVASCULAR: Denies chest pain. Denies orthopnea. Denies PND. Denies palpitations RESPIRATORY: Denies shortness of breath. GASTROINTESTINAL: Denies abdominal pain. Denies nausea or vomiting. HEMATOLOGIC: Denies bleeding disorders. GENITOURINARY: Denies any blood in urine. SKIN: Denies puritis. Denies rash. Physical examination: Gen: This is a 54-year-old female in no acute distress. VS: reviewed HEENT: Head is atraumatic, normocephalic. Pupils equal, round. Sclerae is a nicteric. NECK: Supple. No JVD. LUNGS: Clear to auscultation. No wheezes or rhonchi. No intercostal retractions. HEART: Irregular rate and rhythm. No murmur. ABDOMEN: Soft No tenderness. EXTREMITIES: No pedal edema. No calf tenderness. NEUROLOGICAL: Patient is unresponsive to verbal stimuli. Assessment: Paroxysmal atrial fibrillation with RVR Drug overdose Alcohol intoxication Hypertension Diabetes mellitus type 2 History of CVA/TIA in her mid 40s History of prior bariatric surgery Von Willebrand disease Asthma Tobacco use and dependence Marijuana use Plan: Continue Cardizem drip currently at 10 mg/h. If heart rate is controlled this afternoon reduce to 5 mg/h Patient has been started on Lopressor 25 mg twice daily Resume Eliquis 5 mg twice daily Continue telemetry monitoring No need to repeat echocardiogram Further recommendations to follow based upon clinical course Thank you kindly for this consultation. Nurse practitioner note has been reviewed, I agree with documented findings and plan of care. Patient was seen and examined. Past Medical History Past Medical History: CVA/TIA, Diabetes Mellitus History of Any Multi-Drug Resistant Organisms: None Reported Past Surgical History: Breast Surgery, Cholecystectomy, Orthopedic Surgery Additional Past Surgical History / Comment(s): bilateral ankle surgery, cosmetic surgies Past Psychological History: No Psychological Hx Reported Smoking Status: Current every day smoker Past Alcohol Use History: Rare Past Drug Use History: None Reported Medications and Allergies Home Medications Medication Instructions Recorded Confirmed Type Semaglutide [Wegovy] 2.4 mg SQ MO 06/15/25 06/18/25 History hydrOXYzine pamoate [Vistaril] 50 mg PO QID 06/15/25 06/18/25 History ALPRAZolam [Xanax] 0.25 mg PO TID PRN #12 tab 06/17/25 06/18/25 Rx Apixaban [Eliquis] 5 mg PO BID #60 tab 06/17/25 06/18/25 Rx carvediloL [Coreg] 3.125 mg PO BID-W/MEALS #60 tab 06/17/25 06/18/25 Rx cloNIDine HCL [Catapres] 0.1 mg PO DAILY #0 06/17/25 06/18/25 Rx Allergies Allergy/AdvReac Type Severity Reaction Status Date / Time No Known Allergies Allergy Verified 06/18/25 06:58 Physical Exam Vitals: Vital Signs Temp Pulse Resp BP Pulse Ox 06/18/25 05:20 97.7 F 122 H 16 116/79 95 06/18/25 03:51 130 H 18 118/91 98 06/18/25 03:17 161 H 18 118/83 06/18/25 03:00 130 H 18 118/83 06/18/25 02:41 120 H 18 82/67 06/18/25 02:00 150 H 18 97/73 97 06/18/25 01:33 114/104 06/18/25 01:30 150 H 20 97 06/18/25 01:08 120 H 20 100/70 98 06/18/25 00:45 190 H 20 121/98 98 06/17/25 22:50 130 H 18 106/89 96 Intake and Output 06/17/25 06/18/25 06/18/25 22:59 06:59 14:59 Other: Weight 77.111 kg Results 06/17/25 22:56 06/17/25 22:56 Cardiac Enzymes 06/17/25 06/18/25 Range/Units 22:56 03:01 AST 27 (14-36) U/L Troponin I <0.012 (0.000-0.034) ng/mL Coagulation 06/17/25 Range/Units 22:56 PT 10.9 (10.0-12.5) sec CBC 06/17/25 Range/Units 22:56 WBC 11.33 H (4.50-10.00) 10*3/uL RBC 4.26 (4.10-5.20) 10*6/uL Hgb 13.5 (12.0-15.0) g/dL Hct 39.8 (37.2-46.3) % Plt Count 426 (140-440) 10*3/uL Comprehensive Metabolic Panel 06/17/25 Range/Units 22:56 Sodium 139 (137-145) mmol/L Potassium 4.7 (3.5-5.1) mmol/L Chloride 105 (98-107) mmol/L Carbon Dioxide 15 L (22-30) mmol/L BUN 10 (7-17) mg/dL Creatinine 0.59 (0.52-1.04) mg/dL Glucose 137 H (74-99) mg/dL Calcium 8.9 (8.4-10.2) mg/dL AST 27 (14-36) U/L ALT 11 (4-34) U/L Alkaline Phosphatase 88 (38-126) U/L Total Protein 6.6 (6.3-8.2) g/dL Albumin 4.2 (3.5-5.0) g/dL Current Medications Generic Name Dose Route Start Last Admin Trade Name Freq PRN Reason Stop Dose Admin Diltiazem HCl 125 mg/ Dextrose 125 mls @ 5 mls/hr 06/18/25 01:00 06/18/25 00:59 /Water IV 5 mg/hr .Q24H YVETTE 5 mls/hr Administration Protocol 5 MG/HR Sodium Chloride 1,000 mls @ 130 mls/hr 06/18/25 00:45 06/18/25 01:00 Saline 0.9% IV 130 mls/hr .Q7H42M YVETTE Administration Metoprolol Tartrate 25 mg 06/18/25 09:00 Metoprolol Tartrate 25 Mg Tab PO BID YVETTE Naloxone HCl 0.2 mg 06/18/25 00:31 Naloxone 0.4 Mg/Ml 1 Ml Vial IV Q2M PRN Opioid Reversal Ondansetron HCl 4 mg 06/18/25 00:31 06/18/25 05:12 Ondansetron 4 Mg/2 Ml Vial IVP 4 mg Q8HR PRN Administration Nausea And Vomiting Intake and Output 06/17/25 06/18/25 06/18/25 22:59 06:59 14:59 Other: Weight 77.111 kg 06/17/25 22:56 06/17/25 22:56
[2025-06-18 12:05] VITALS: RESP 18
[2025-06-18 13:07] LABS: Glucose,Whole Blood 98 mg/dL (70-110)
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
--- NOTE | 2025-06-18 15:38 | HP ---
HISTORY AND PHYSICAL CHIEF COMPLAINT: Overdose and palpitation. HISTORY OF PRESENT ILLNESS: This is a 54-year-old woman with a past medical history of multiple medical problems, recently admitted with atrial fibrillation, fast ventricular rate. The patient went home. Apparently, the patient had a lot of stress, taking care of the elderly parents including dementia in father and the patient apparently took some medications including Catapres and as well as alcohol. The patient was noted to be drowsy. The patient also has atrial fibrillation with fast ventricular rate. The patient admitted for further evaluation for psychiatric evaluation at this time. The patient is on Cardizem drip at 5 mg/hour. PAST MEDICAL HISTORY: Reviewed include CVA, TIA, diabetes mellitus type 2, atrial fibrillation, rest of the chart is also reviewed. HOME MEDICATIONS: Reviewed include Vistaril. Dose and rest of medications reviewed. ALLERGIES: None. FAMILY HISTORY: No history of heart disease or strokes in the family. SOCIAL HISTORY: History of smoking. REVIEW OF SYSTEMS: A 14-point review of systems negative except as mentioned earlier. PHYSICAL EXAMINATION: VITAL SIGNS: Pulse 61, blood pressure ntd and respirations 18. HEENT: Conjunctivae normal. NECK: No jugular venous distention. CARDIOVASCULAR: S1, S2. RESPIRATION: Breath sounds diminished at the bases. ABDOMEN: Soft and nontender. LEGS: No edema. NERVOUS SYSTEM: No focal deficit. LABORATORY DATA: Reviewed. Drug screen is positive for THC and benzodiazepines. ASSESSMENT: 1. Status post overdose attempt and EtOH possibly. 2. Atrial fibrillation with fast ventricular rate. 3. Chest pain, myocardial infarction ruled out. 4. History of hypertension. 5. History of asthma. 6. History of von-Willebrand disease. 7. Diabetes mellitus, type 2. 8. History of cerebrovascular accident and transient ischemic attack. 9. THC. 10.Multiple complex medical issues. RECOMMENDATIONS AND DISCUSSION: I recommend to continue current management and continue symptomatic treatment. Continue with the Cardizem. Cardiology consultation. Psychiatric evaluation. The patient will require possible inpatient psych unit. Continue to monitor. Resume the home medications. Guarded prognosis. Further recommendations to follow. MMPEEL / PALOMON: [id number] / MTDD
--- NOTE | 2025-06-18 15:53 | P.PN ---
Progress Note - Text Chart reviewed 54-year-old female admitted for a suicide attempt. Found to be in A-fib with RVR, paroxysmal and converted to sinus rhythm. She was recently in the hospital and had an episode of atrial fibrillation. She was discharged home on carvedilol. Normal TSH Risk factors for atrial fibrillation include Alcohol abuse Marijuana use Vaping and nicotine use overdosed on clonidine LV function is normal on 2D echo Reportedly diabetic History of von Willebrand disease requiring DDAVP for any procedures History of CVA, Suggest Continue anticoagulation Continue beta-blockers perhaps metoprolol succinate 50 mg p.o. daily Hematology consultation recommended since she has von Willebrand disease, for clarification regarding management during the perioperative period. Avoid marijuana alcohol nicotine vaping High risk for antiarrhythmic drug therapy as well as A-fib ablation
[2025-06-18 16:54] LABS: Glucose,Whole Blood 78 mg/dL (70-110)
[2025-06-18] MEDS: hydrOXYzine HCL 25 MG TAB PO SCH (17:30)
[2025-06-18] MEDS: MELATONIN 3 MG TABLET PO SCH (23:12)
[2025-06-19 03:11] VITALS: TEMP 97.7
[2025-06-19 05:36] LABS: Glucose,Whole Blood 88 mg/dL (70-110)
[2025-06-19 07:23] LABS: Basophils # (A) 0.03 10*3/uL (0.00-0.10); Basophils % (A) 0.3 %; Eosinophils # (A) 0.19 10*3/uL (0.04-0.35); Eosinophils % (A) 1.9 %; HCT 38.8 % (37.2-46.3); HGB 13.0 g/dL (12.0-15.0); Lymphocytes # (A) 3.57 10*3/uL (0.90-5.00); Lymphocytes % (A) 35.7 %; MCH 31.5 pg (27.0-32.0); MCHC 33.5 g/dL (32.0-37.0); MCV 93.9 fL (80.0-97.0); Monocytes # (A) 0.57 10*3/uL (0.20-1.00); Monocytes % (A) 5.7 %; Neutrophils # (A) 5.59 10*3/uL (1.80-7.70); Neutrophils % (A) 56.0 %; Platelet Count 464 10*3/uL (140-440); RBC 4.13 10*6/uL (4.10-5.20); RDW 13.3 % (11.5-14.5); WBC 9.99 10*3/uL (4.50-10.00)
[2025-06-19 08:01] LABS: ALT 9 U/L (4-34); AST 17 U/L (14-36); African American GFR (CKD) >90 (>60 ml/min/1.73 sqM); Albumin 3.5 g/dL (3.5-5.0); Alkaline Phosphatase 84 U/L (38-126); Anion Gap 6 mmol/L; Blood Urea Nitrogen 7 mg/dL (7-17); Calcium 8.8 mg/dL (8.4-10.2); Carbon Dioxide 26 mmol/L (22-30); Chloride 107 mmol/L (98-107); Glucose 69 mg/dL (74-99); Magnesium 1.9 mg/dL (1.6-2.3); Non-African American GFR(CKD) >90 (>60 ml/min/1.73 sqM); Potassium 4.3 mmol/L (3.5-5.1); Sodium 139 mmol/L (137-145); Total Protein 5.6 g/dL (6.3-8.2)
[2025-06-19 08:32] VITALS: BP 143/92; PULSE 67
[2025-06-19] MEDS: METOPROLOL SUCCINATE (ER) 50 MG TAB.ER.24H PO SCH (08:40)
[2025-06-19 11:17] LABS: Glucose,Whole Blood 102 mg/dL (70-110)
--- NOTE | 2025-06-19 13:22 | P.PN ---
Subjective Progress Note Date: 06/19/25 Reason for Consult (text): SVT History of present illness: This is a 54-year-old female patient with past medical history of diabetes mellitus type 2, hypertension, CVA/TIA in her mid 40s, history of bariatric surgery, von Willebrand's disease, asthma, active tobacco use and dependence, vapor use, marijuana use. Patient was recently hospitalized for new onset of atrial fibrillation and was discharged yesterday. Apparently patient left and had a disagreement with family and did not overdose with clonidine, hydroxyzine, and Seroquel. Patient is unresponsive to us at this time. She has noted to be in atrial fibrillation and initially heart rates were up to the 190s. Heart rate is currently 120s. She has been started on Cardizem drip which is currently at 10 mg/h. She is also status post Cardizem bolus 19 mg, magnesium replacement, IV fluid bolus of 1 L, IV Ativan x 1. Patient also received Xanax blood pressure 126/94, pulse ox 98% on room air. Telemetry is atrial fibrillation. -EKG: Atrial fibrillation at 197 bpm. -Laboratory studies: WBC 11.3, hemoglobin 13.5, creatinine 0.59, potassium 4.7, troponin negative x 2. TSH 1.46. Urine drug screen positive for tricyclic antidepressants, benzodiazepines and marijuana. Serum alcohol 92. -Home cardiac medications: Discharged yesterday on Eliquis 5 mg twice daily, Coreg 3.125 mg twice daily, Catapres reduced to 0.1 mg daily. -Echocardiogram performed on 06/16/2025 revealed EF 50 to 55%, trace to mild tricuspid regurgitation. 06/19/2025 Patient seen and examined. Patient was evaluated by Dr. Hannon yesterday, see report. Patient converted to sinus rhythm and Cardizem drip has been paused and will be discontinued. Patient does have a global safety officer at the bedside and has been seen by psychiatry. Blood pressure 143/92, heart rate 67, pulse ox 97% on room air. Patient was evaluated by oncology during the last hospitalization and patient was cleared to take Eliquis and monitor closely. Physical examination: Gen: This is a 54-year-old female in no acute distress. VS: reviewed HEENT: Head is atraumatic, normocephalic. Pupils equal, round. Sclerae is anicteric. NECK: Supple. No JVD. LUNGS: Clear to auscultation. No wheezes or rhonchi. No intercostal retractions. HEART: Regular rate and rhythm. No murmur. ABDOMEN: Soft No tenderness. EXTREMITIES: No pedal edema. No calf tenderness. NEUROLOGICAL: Patient is unresponsive to verbal stimuli. Assessment: Paroxysmal atrial fibrillation with RVR, converted to sinus rhythm Drug overdose Alcohol intoxication Hypertension Diabetes mellitus type 2 History of CVA/TIA in her mid 40s History of prior bariatric surgery Von Willebrand disease Asthma Tobacco use and dependence Marijuana use Plan: Patient is off Cardizem drip Continue metoprolol succinate 50 mg daily, Eliquis 5 mg daily No need to repeat echocardiogram Patient is cleared for discharge from a cardiology perspective. She will follow-up with Dr. Calderón in 1 to 2 weeks. Nurse practitioner note has been reviewed, I agree with documented findings and plan of care. Patient was seen and examined. Objective - Vital Signs Vital signs: Vital Signs Temp 97.7 F 06/19/25 03:10 Pulse 67 06/19/25 08:29 Resp 18 06/19/25 08:29 BP 143/92 06/19/25 08:29 Pulse Ox 97 06/19/25 08:29 FiO2 Intake & Output 06/18/25 06/19/25 06/19/25 18:59 06:59 18:59 Intake Total 817.083 500 225 Balance 817.083 500 225 Weight 77.111 kg 77.2 kg Intake: IV 20 Invasive Line 1 20 Intake, IV Titration 97.083 Amount Diltiazem 125 mg In 97.083 Dextrose 5% in Water 100 ml @ 5 MG/HR 5 mls/hr IV .Q24H YVETTE Rx#:[id number] Oral 720 480 225 Other: # Voids 1 1 - Labs CBC & Chem 7: 06/19/25 05:54 06/19/25 05:54 Labs: Abnormal Lab Results - Last 24 Hours (Table) 06/19/25 06/19/25 Range/Units 05:54 05:54 Plt Count 464 H (140-440) 10*3/uL MPV 9.0 L (9.5-12.2) fL Glucose 69 L (74-99) mg/dL Total Protein 5.6 L (6.3-8.2) g/dL
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
[2025-06-19 16:34] LABS: Glucose,Whole Blood 92 mg/dL (70-110)
== END 2025-06-19 17:07 | DRG 918 ==
LOC: EC 22:49 → 3SCARD 06-18 00:33
PROVIDERS: ADMIT Hospitalist; ATTEND Hospitalist
DX: T46.5X2A Poisoning by other antihypertensive drugs, intentional self-harm, initial encounter (principal); D68.00 Von Willebrand disease, unspecified; F10.229 Alcohol dependence with intoxication, unspecified; E11.9 Type 2 diabetes mellitus without complications; J45.909 Unspecified asthma, uncomplicated; I10 Essential (primary) hypertension; F32.A Depression, unspecified; I47.10 Supraventricular tachycardia, unspecified; I48.0 Paroxysmal atrial fibrillation; F68.8 Other specified disorders of adult personality and behavior; R07.9 Chest pain, unspecified; R45.1 Restlessness and agitation; F17.200 Nicotine dependence, unspecified, uncomplicated; Y90.4 Blood alcohol level of 80-99 mg/100 ml; Z79.01 Long term (current) use of anticoagulants; Z79.899 Other long term (current) drug therapy; Z86.73 Personal history of transient ischemic attack (TIA), and cerebral infarction without residual deficits; Z98.84 Bariatric surgery status; Z28.21 Immunization not carried out because of patient refusal; Z88.5 Allergy status to narcotic agent
CPT/HCPCS: 36415; 80053; 80143; 80179; 80306; 80320; 81001; 81025; 83690; 83735; 84100; 84443; 84484; 85025; 85610; 87635; 93005; 96361; 96365; 96366; 96375; 99291